=== PATIENT | male | born 1965 | race Caucasian/White ===

== ENCOUNTER 2020-03-15 18:02 | Emergency (ER) | payer OTHER ==
[~2020-03-15] VITALS: Ht 177.8 cm; Wt 91.3 kg
[2020-03-15 18:03] VITALS: BP 137/83
[2020-03-15] MEDS ORDERED: ZOCO10TA PO (18:16)
[2020-03-15] MEDS ORDERED: lisinopril (18:16)
[2020-03-15] MEDS ORDERED: RABIES VACCINE HUMAN 2.5 INTERNATIONAL UNITS/ML VIAL (90675) IM ONE (18:45)
[2020-03-15] MEDS ORDERED: RABIES IMMUNE GLOBULIN 1500 INTERNATIONAL UNIT/5ML VIAL (90375) IM ONE ×2 (18:45→19:00)
[2020-03-15] MEDS ORDERED: RABIES IMMUNE GLOBULIN 300 INTERNATIONAL UNITS/1ML VIAL (90375) IM ONE (19:00)
== END 2020-03-15 20:37 | disposition home or self-care (01) ==
LOC: M ED 18:02
DX: Z23 Encounter for immunization (principal); Z20.3 Contact with and (suspected) exposure to rabies; I10 Essential (primary) hypertension; E78.5 Hyperlipidemia, unspecified; Z88.0 Allergy status to penicillin

== ENCOUNTER 2020-03-18 07:09 | Emergency (ER) | payer OTHER ==
[~2020-03-18] VITALS: Ht 177.8 cm; Wt 91.1 kg
[~2020-03-18 07:09] MED LIST: ZOCO10TA PO; lisinopril
[2020-03-18] MEDS ORDERED: RABIES VACCINE HUMAN 2.5 INTERNATIONAL UNITS/ML VIAL (90675) IM ONE (07:30)
[2020-03-18 08:03] VITALS: BP 132/78
== END 2020-03-18 08:05 | disposition home or self-care (01) ==
LOC: M ED 07:09
DX: Z20.3 Contact with and (suspected) exposure to rabies (principal); Z23 Encounter for immunization; I10 Essential (primary) hypertension; E78.5 Hyperlipidemia, unspecified; Z79.899 Other long term (current) drug therapy; Z88.0 Allergy status to penicillin

== ENCOUNTER 2020-03-22 04:17 | Emergency (ER) | payer OTHER ==
[~2020-03-22] VITALS: Ht 177.8 cm; Wt 88.6 kg
[2020-03-22 04:17] VITALS: BP 147/83
[2020-03-22] MEDS ORDERED: RABIES VACCINE HUMAN 2.5 INTERNATIONAL UNITS/ML VIAL (90675) IM ONE (04:30)
== END 2020-03-22 04:43 | disposition home or self-care (01) ==
LOC: M ED 04:17
DX: Z20.3 Contact with and (suspected) exposure to rabies (principal); Z23 Encounter for immunization; I10 Essential (primary) hypertension; Z79.899 Other long term (current) drug therapy

== ENCOUNTER 2020-03-29 04:27 | Emergency (ER) | payer OTHER ==
[~2020-03-29] VITALS: Ht 177.8 cm; Wt 89.9 kg
[2020-03-29 04:27] VITALS: BP 138/91
[2020-03-29] MEDS ORDERED: RABIES VACCINE HUMAN 2.5 INTERNATIONAL UNITS/ML VIAL (90675) IM ONE (05:15)
== END 2020-03-29 05:37 | disposition home or self-care (01) ==
LOC: M ED 04:27
DX: Z20.3 Contact with and (suspected) exposure to rabies (principal); Z23 Encounter for immunization; I10 Essential (primary) hypertension; E78.5 Hyperlipidemia, unspecified; Z79.899 Other long term (current) drug therapy; Z88.0 Allergy status to penicillin

== ENCOUNTER 2020-08-31 16:13 | Emergency (ER) | payer OTHER ==
[~2020-08-31] VITALS: Ht 177.8 cm; Wt 93.6 kg
[2020-08-31 17:52] LABS: BASO % 0.5 % (0.0-1.0); EOS # 0.1 10^3/uL (0.0-0.5); EOS % 1.5 % (0.0-3.0); HEMATOCRIT 44.6 % (42.0-52.0); HEMOGLOBIN 15.5 g/dl (13.5-17.5); LYMPH # 1.4 10^3/uL (1.5-5.0); LYMPH % 35.1 % (24.0-44.0); MEAN CORPUSCULAR HEMOGLOBIN 34.1 pg (27.0-33.0); MEAN CORPUSCULAR HGB CONC 34.8 g/dl (32.0-36.5); MONO # 0.4 10^3/uL (0.0-0.8); MONO % 8.6 % (2.0-8.0); NEUTROPHILS # 2.2 10^3/uL (1.5-8.5); NEUTROPHILS % 54.1 % (36.0-66.0); PLATELET COUNT, AUTOMATED 214 10^3/uL (150-450); RED BLOOD COUNT 4.55 10^6/uL (4.30-6.10); WHITE BLOOD COUNT 4.1 10^3/uL (4.0-10.0)
[2020-08-31 18:11] LABS: ALBUMIN 4.1 GM/DL (3.2-5.2); ALT/SGPT 85 U/L (12-78); BILIRUBIN,DIRECT 0.2 MG/DL (0.0-0.2); BILIRUBIN,TOTAL 0.5 MG/DL (0.2-1.0); BLOOD UREA NITROGEN 20 MG/DL (7-18); CARBON DIOXIDE LEVEL 32 MEQ/L (21-32); CHLORIDE LEVEL 104 MEQ/L (98-107); CREATININE FOR GFR 1.08 MG/DL (0.70-1.30); GLOMERULAR FILTRATION RATE > 60.0 (>56); GLUCOSE, FASTING 132 MG/DL (70-100); LIPASE 123 U/L (73-393); POTASSIUM SERUM 4.1 MEQ/L (3.5-5.1); SODIUM LEVEL 139 MEQ/L (136-145); TOTAL PROTEIN 6.8 GM/DL (6.4-8.2)
--- NOTE | 2020-08-31 18:49 | REP ---
INDICATION: RUQ pain. COMPARISON: None. TECHNIQUE: Real-time sonographic evaluation of right upper quadrant performed. FINDINGS: The gallbladder demonstrates no evidence of intraluminal sludge or calculi, wall thickening or pericholecystic fluid. Gallbladder is somewhat contracted likely due to recent meal approximately 3 hours ago. There is no intrahepatic or extrahepatic biliary dilatation, common bile duct measures 4 mm in maximum diameter. The liver demonstrates homogeneous echotexture with no gross mass. Visualized pancreas is grossly unremarkable, not well seen due to overlying bowel gas. The right kidney demonstrates no hydronephrosis, with a normal size of 11.2 cm in length. There is a 6 mm cyst in the mid right kidney.No free fluid is seen. IMPRESSION: Essentially negative right upper quadrant ultrasound. Gallbladder is somewhat contracted likely due to recent meal approximately 3 hours ago. <Electronically signed by Lucio Acharya > 08/31/20 [id number]
[2020-08-31 18:51] VITALS: BP 148/77
== END 2020-08-31 18:52 | disposition home or self-care (01) ==
LOC: M ED 16:13
DX: R10.11 Right upper quadrant pain (principal); I10 Essential (primary) hypertension; E78.5 Hyperlipidemia, unspecified; Z79.899 Other long term (current) drug therapy; Z88.0 Allergy status to penicillin

== ENCOUNTER 2020-10-05 01:33 | Emergency (ER) | payer OTHER ==
[~2020-10-05] VITALS: Ht 177.8 cm; Wt 88.6 kg
[2020-10-05] MEDS ORDERED: OMEP10CASR PO (01:44)
[2020-10-05] MEDS ORDERED: ATOR1TAB21 PO (01:44)
[2020-10-05 03:11] LABS: BASO % 0.4 % (0.0-1.0); EOS % 0.7 % (0.0-3.0); HEMATOCRIT 45.2 % (42.0-52.0); HEMOGLOBIN 15.6 g/dl (13.5-17.5); LYMPH # 1.1 10^3/uL (1.5-5.0); LYMPH % 23.3 % (24.0-44.0); MEAN CORPUSCULAR HEMOGLOBIN 33.6 pg (27.0-33.0); MEAN CORPUSCULAR HGB CONC 34.5 g/dl (32.0-36.5); MEAN CORPUSCULAR VOLUME 97.4 fl (80.0-96.0); MONO # 0.5 10^3/uL (0.0-0.8); MONO % 10.4 % (2.0-8.0); NEUTROPHILS # 2.9 10^3/uL (1.5-8.5); NEUTROPHILS % 64.8 % (36.0-66.0); PLATELET COUNT, AUTOMATED 204 10^3/uL (150-450); RED BLOOD COUNT 4.64 10^6/uL (4.30-6.10); WHITE BLOOD COUNT 4.5 10^3/uL (4.0-10.0)
[2020-10-05 03:40] LABS: ALBUMIN 4.2 GM/DL (3.2-5.2); ALT/SGPT 62 U/L (12-78); BILIRUBIN,DIRECT 0.1 MG/DL (0.0-0.2); BILIRUBIN,TOTAL 0.4 MG/DL (0.2-1.0); BLOOD UREA NITROGEN 22 MG/DL (7-18); CALCIUM LEVEL 8.9 MG/DL (8.5-10.1); CARBON DIOXIDE LEVEL 25 MEQ/L (21-32); CHLORIDE LEVEL 107 MEQ/L (98-107); CREATININE FOR GFR 1.18 MG/DL (0.70-1.30); GLOMERULAR FILTRATION RATE > 60.0 (>56); GLUCOSE, FASTING 109 MG/DL (70-100); LIPASE 92 U/L (73-393); POTASSIUM SERUM 4.1 MEQ/L (3.5-5.1); SODIUM LEVEL 140 MEQ/L (136-145); TOTAL PROTEIN 6.7 GM/DL (6.4-8.2)
[2020-10-05] MEDS ORDERED: KETOROLAC 30 MG/ML 1ML VIAL IV ONE (03:45)
[2020-10-05] MEDS: GASTROGRAFIN SOLUTION 30ML PO SCH ×2 (04:19→04:50)
[2020-10-05] MEDS ORDERED: ISOVUE-370 76% 100ML VIAL As Ordered ONE (05:29)
--- NOTE | 2020-10-05 06:38 | REPVR ---
PROCEDURE INFORMATION: Exam: CT Abdomen And Pelvis With Contrast Exam date and time: 10/05/2020 3:51 AM Age: 55 years old Clinical indication: Abdominal pain; Flank; Left; Additional info: Llq pain TECHNIQUE: Imaging protocol: Computed tomography of the abdomen and pelvis with contrast. Radiation optimization: All CT scans at this facility use at least one of these dose optimization techniques: automated exposure control; mA and/or kV adjustment per patient size (includes targeted exams where dose is matched to clinical indication); or iterative reconstruction. Contrast material: ISO; Contrast volume: 100 ml; Contrast route: INTRAVENOUS (IV); Other contrast: Oral, ggraphin, 600; COMPARISON: GALLBLADDER US 08/31/2020 6:24 PM FINDINGS: Lungs: There is basilar atelectasis. Liver: Normal. No mass. Gallbladder and bile ducts: No calcified stones. No ductal dilation. Pancreas: Normal. No ductal dilation. Spleen: Normal. No splenomegaly. Adrenal glands: Normal. No mass. Kidneys and ureters: There is mild left hydronephrosis and hydroureter to a 4 mm distal left ureteral calculus, 1 cm from the left UVJ seen best on image 128 of series 201. This is not clearly demonstrated on the brand planner radiograph. There is a 4 mm nonobstructing calculus in the upper pole the right kidney and a punctate nonobstructing calculus in the lower pole left kidney. There is a 6 mm hypodensity in the lateral cortex of the right kidney which is too small to characterize but statistically represents a cyst. Stomach and bowel: There is diverticulosis of the left colon. Appendix: No evidence of appendicitis. Intraperitoneal space: No free air. No significant fluid collection. Vasculature: No abdominal aortic aneurysm. Lymph nodes: No enlarged lymph nodes. Urinary bladder: Unremarkable as visualized. Reproductive: Unremarkable as visualized. Bones/joints: There are postoperative changes from anterior and posterior spinal fusion L4-S1. Soft tissues: Unremarkable. IMPRESSION: 1. There is mild obstruction of the left kidney from a 4 mm distal left ureteral calculus, 1 cm from the left UVJ. 2. Nonobstructing renal calculi. 3 Diverticulosis. Electronically signed by: Marcus Fitch On 10/05/2020 06:38:26 AM
[2020-10-05] MEDS ORDERED: TAMSULOSIN 0.4 MG CAP PO ONE (06:45)
[2020-10-05] MEDS ORDERED: HYDR-3713 PO (06:56)
[2020-10-05] MEDS ORDERED: ONDA4TAB6 PO (06:56)
[2020-10-05] MEDS ORDERED: FLOM0.4C39 PO (06:56)
[2020-10-05 07:15] VITALS: BP 164/96
== END 2020-10-05 07:28 | disposition home or self-care (01) ==
LOC: M ED 01:33
DX: N20.1 Calculus of ureter (principal); I10 Essential (primary) hypertension; E78.5 Hyperlipidemia, unspecified; Z79.899 Other long term (current) drug therapy
CPT/HCPCS: 74177; 80048; 80076; 81001; 83690; 85025; 96374; 99285; J1885; Q9963; Q9967

== ENCOUNTER → 2020-10-18 | Outpatient (CLI) | payer OTHER ==
[~2020-10-18] MED LIST changes: +ATOR1TAB21 PO; +FLOM0.4C39 PO; +HYDR-3713 PO; +OMEP10CASR PO; +ONDA4TAB6 PO
--- NOTE | 2020-10-18 15:26 | REPPI ---
INDICATION: N20.1 LEFT URETERAL CALCULUS COMPARISON: CT dated 10/05/2020 TECHNIQUE: Supine views of the abdomen and pelvis. FINDINGS: The small intrarenal calculi identified on CT are not visible by current x-ray. A 4 mm calcification is identified within the left hemipelvis which may represent the known ureteral stone or known phlebolith. Evaluation is limited and correlation with urinalysis and physical examination may be warranted. Bowel gas pattern is nonspecific. Evidence for prior lumbar laminectomy and fixation. IMPRESSION: 4 mm calcification in the left hemipelvis likely represents known phlebolith as a 2nd calcification consistent with the patient's prior distal left ureteral stone is not identifiable. Correlation with urinalysis and physical examination may be warranted. <Electronically signed by Isaac Finch > 10/18/20 1521
== END ==
LOC: M PLAIMG 14:44
PROVIDERS: ATTEND Urology
DX: N20.1 Calculus of ureter (principal)
CPT/HCPCS: 74018; G0463

== ENCOUNTER → 2020-10-24 | Outpatient (REF) | payer OTHER | LOC: M SMT 13:01 | PROVIDERS: ATTEND Urology | DX: N20.1 Calculus of ureter (principal) ==

== ENCOUNTER 2020-12-14 08:38 | Day surgery (SDC) | payer OTHER ==
[~2020-12-14] VITALS: Ht 177.8 cm; Wt 93.2 kg
[~2020-12-14 08:38] MED LIST changes: +LISI20TA33 PO; +NS 1,000 ML IV SCH
[2020-12-14] MEDS ORDERED: propofoL 200 MG/20 ML VIAL As Ordered ONE (08:49)
[2020-12-14] MEDS ORDERED: LIDOCAINE 2% 100MG/5ML SDV (FOR ANES.) As Ordered ONE (08:49)
[2020-12-14] MEDS ORDERED: fentaNYL 100 MCG/2 ML INJECTION (J3010) As Ordered ONE (10:12)
--- NOTE | 2020-12-14 10:25 | ROOR ---
Patient Name: Landen Martinez Procedure Date: 12/14/2020 10:05 AM Date of : 1965 Age: 55 Room: [facility] Gender: Male Note Status: Finalized Procedure: Upper Endoscopy + Biopsies Indications: Epigastric abdominal pain, Heartburn, Exclusion of Madsen's esophagus Providers: Luca Tello MD Referring MD: Rakesh Santana Do Requesting Provider: Medicines: Monitored Anesthesia Care Complications: No immediate complications. Procedure: Pre-Anesthesia Assessment: - The heart rate, respiratory rate, oxygen saturations, blood pressure, adequacy of pulmonary ventilation, and response to care were monitored throughout the procedure. The Endoscope was introduced through the mouth, and advanced to the second part of duodenum. The upper GI endoscopy was accomplished without difficulty. The patient tolerated the procedure well. Findings: The Z-line was variable and was found 40 cm from the incisors. Multiple biopsies were obtained with cold forceps for evaluation to rule out Madsen's Esophagus randomly at the gastroesophageal junction. No other significant abnormalities were identified in a careful examination of the stomach. Biopsies were taken with a cold forceps in the gastric antrum for Helicobacter pylori testing. The exam of the duodenum was otherwise normal. Impression: - Z-line variable, 40 cm from the incisors. - Multiple biopsies were obtained at the gastroesophageal junction. - Biopsies were taken with a cold forceps for Helicobacter pylori testing. - The examination was otherwise normal. Recommendation: - Patient has a contact number available for emergencies. The signs and symptoms of potential delayed complications were discussed with the patient. Return to normal activities tomorrow. Written discharge instructions were provided to the patient. - High fiber diet. - Discharge patient to home. - Follow an antireflux regimen. - Continue present medications. - Await pathology results. - Telephone GI clinic for pathology results in 1 week. - Repeat upper endoscopy for surveillance based on pathology results. - The findings and recommendations were discussed with the patient's family. Procedure Code(s): --- Professional --- 52149, Esophagogastroduodenoscopy, flexible, transoral; with biopsy, single or multiple Diagnosis Code(s): --- Professional --- K22.8, Other specified diseases of esophagus R10.13, Epigastric pain R12, Heartburn CPT copyright 2019 [employer]. All rights reserved. The codes documented in this report are preliminary and upon pin ticket machine operator review may be revised to meet current compliance requirements. Luca Tello MD Luca Tello MD 12/14/2020 10:24:49 AM Electronically signed by Luca Tello MD Number of Addenda: 0 Note Initiated On: 12/14/2020 10:05 AM Estimated Blood Loss: Estimated blood loss: none.
[2020-12-14 10:42] VITALS: BP 122/78
== END 2020-12-14 10:48 | disposition home or self-care (01) ==
LOC: M OPP 08:38
PROVIDERS: ATTEND Internal Medicine Gastroenterology
DX: K22.8 Other specified diseases of esophagus (principal); K21.9 Gastro-esophageal reflux disease without esophagitis; R12 Heartburn; R10.84 Generalized abdominal pain; Z79.899 Other long term (current) drug therapy; Z88.0 Allergy status to penicillin; Z87.891 Personal history of nicotine dependence; Z87.442 Personal history of urinary calculi
CPT/HCPCS: 43239; 88305; J3010

== ENCOUNTER → 2022-02-25 | Outpatient (CLI) | payer OTHER ==
[~2022-02-25] MED LIST changes: -NS 1,000 ML IV SCH; +SIMV-252 PO; -ZOCO10TA PO
[2022-02-25 11:01] LABS: APPEARANCE, URINE MANUAL CLEAR (CLEAR); COLOR, URINE MANUAL YELLOW (YELLOW); PH,URINE MAN 5.5 UNITS (5.0 - 7.0); SPECIFIC GRAVITY,URINE MANUAL 1.015 (1.002-1.035)
[2022-02-25 11:02] LABS: BILIRUBIN, URINE MANUAL NEGATIVE (NEGATIVE); GLUCOSE, URINE (UA) MANUAL NEGATIVE (NEGATIVE); KETONE, URINE MANUAL NEGATIVE (NEGATIVE); NITRITE, URINE MANUAL NEGATIVE (NEGATIVE); PROTEIN, URINE MANUAL NEGATIVE (NEGATIVE); UROBILINOGEN, URINE MANUAL NORMAL (NORMAL)
[2022-02-25 11:04] LABS: BLOOD URINE MANUAL TRACE (NEGATIVE); LEUKOCYTE ESTERASE, URINE MAN TRACE (NEGATIVE)
[2022-02-25 11:10] LABS: BACTERIA, URINE NONE SEEN; RBC, URINE 0-1 /hpf (0-3); SQUAMOUS EPITHELIAL CELL URINE NONE SEEN /hpf (SMALL AMT); WBC, URINE 0-1 /hpf (0-3)
[2022-02-25 11:11] LABS: HYALINE CAST, URINE NONE SEEN /lpf (0-1)
== END ==
LOC: M PLAIMG 09:54
PROVIDERS: ATTEND Urology
DX: N20.0 Calculus of kidney (principal)
CPT/HCPCS: 74018; 81000; G0463

== ENCOUNTER 2022-05-08 09:18 | Day surgery (SDC) | payer OTHER ==
[~2022-05-08] VITALS: Ht 172.7 cm; Wt 94.3 kg
[2022-05-08] MEDS ORDERED: LIDOCAINE 1% SDV 5ML VIAL SC PRN (10:10)
[2022-05-08] MEDS ORDERED: LR 1,000 ML IV SCH (10:10)
[2022-05-08] MEDS ORDERED: ceFAZolin SOD 2 GM in IV 1 EA IV ONE (10:15)
[2022-05-08] MEDS ORDERED: MIDAZOLAM INJ 2MG/2ML VIAL (J2250 PER 1MG) As Ordered ONE (10:26)
[2022-05-08] MEDS ORDERED: fentaNYL 100 MCG/2 ML INJECTION As Ordered ONE (10:27)
[2022-05-08] MEDS ORDERED: LIDOCAINE 2% 100MG/5ML SDV (FOR ANES.) As Ordered ONE (10:27)
[2022-05-08] MEDS ORDERED: propofoL 200 MG/20 ML VIAL As Ordered ONE (10:27)
[2022-05-08] MEDS ORDERED: HYDR-3713 PO (11:31)
[2022-05-08] MEDS ORDERED: ePHEDrine SULFATE 25 MG/5 ML(5MG/ML) SYRINGE As Ordered ONE (11:37)
[2022-05-08 12:45] VITALS: BP 143/84
== END 2022-05-08 12:45 | disposition home or self-care (01) ==
LOC: M SDC 09:18
PROVIDERS: ATTEND Urology
DX: N20.0 Calculus of kidney (principal); E78.5 Hyperlipidemia, unspecified; K21.9 Gastro-esophageal reflux disease without esophagitis; I10 Essential (primary) hypertension; Z87.442 Personal history of urinary calculi; Z88.0 Allergy status to penicillin; Z79.899 Other long term (current) drug therapy
CPT/HCPCS: 50590; 74018; J2250; J3010

== ENCOUNTER → 2022-05-30 | Outpatient (REF) | payer OTHER ==
[2022-06-04 14:08] LABS: CA Oxalate Dihy 20 % (.); Ca Ox Monohydrate 80 % (.); Size 3x3 mm (.)
== END ==
LOC: M SMT 16:43
PROVIDERS: ATTEND Urology
DX: N20.0 Calculus of kidney (principal)

== ENCOUNTER → 2022-06-12 | Outpatient (CLI) | payer OTHER | LOC: M PLARAD 13:39 | PROVIDERS: ATTEND Family Medicine | DX: M54.50 Low back pain, unspecified (principal); M43.26 Fusion of spine, lumbar region; M50.21 Other cervical disc displacement, high cervical region; M50.223 Other cervical disc displacement at C6-C7 level ==

== ENCOUNTER 2022-12-19 00:12 | Emergency (ER) | payer OTHER ==
[~2022-12-19] VITALS: Ht 177.8 cm; Wt 97.7 kg
[2022-12-19 00:13] VITALS: BP 136/84; TEMP 99.4; O2SAT 97
[2022-12-19] MEDS ORDERED: NAPR-885 (00:18)
[2022-12-19] MEDS ORDERED: MIRA3350 PO (00:20)
[2022-12-19 02:11] LABS: BASO % 0.4 % (0.0-1.0); EOS % 0.2 % (0.0-3.0); HEMATOCRIT 45.5 % (42.0-52.0); HEMOGLOBIN 16.1 g/dl (13.5-17.5); LYMPH # 1.5 10^3/uL (1.5-5.0); LYMPH % 13.5 % (24.0-44.0); MEAN CORPUSCULAR HGB CONC 35.4 g/dl (32.0-36.5); MONO # 1.1 10^3/uL (0.0-0.8); MONO % 9.6 % (2.0-8.0); NEUTROPHILS # 8.7 10^3/uL (1.5-8.5); NEUTROPHILS % 75.9 % (36.0-66.0); PLATELET COUNT, AUTOMATED 206 10^3/uL (150-450); RED BLOOD COUNT 4.74 10^6/uL (4.30-6.10); WHITE BLOOD COUNT 11.4 10^3/uL (4.0-10.0)
[2022-12-19 02:37] LABS: LIPASE 29 U/L (12-53)
[2022-12-19 02:40] LABS: ALBUMIN 4.4 G/DL (3.2-5.2); ALKALINE PHOSPHATASE 86 U/L (46-116); ALT/SGPT 50 U/L (7.0-40); AST/SGOT 24 U/L (<34); BILIRUBIN,DIRECT 0.5 MG/DL (<0.4); BILIRUBIN,TOTAL 1.6 MG/DL (0.3-1.2); BLOOD UREA NITROGEN 15 MG/DL (9-23); CALCIUM LEVEL 9.7 MG/DL (8.5-10.1); CARBON DIOXIDE LEVEL 26 MMOL/L (20-31); CHLORIDE LEVEL 99 MMOL/L (98-107); CREATININE FOR GFR 0.89 MG/DL (0.70-1.30); GLOMERULAR FILTRATION RATE > 60.0 (>56); GLUCOSE, FASTING 108 MG/DL (60-100); POTASSIUM SERUM 4.4 MMOL/L (3.5-5.1); SODIUM LEVEL 134 MMOL/L (136-145); TOTAL PROTEIN 7.4 G/DL (5.7-8.2)
[2022-12-19] MEDS ORDERED: ISOVUE-370 76% 100ML VIAL As Ordered ONE (02:41)
[2022-12-19] MEDS ORDERED: KETOROLAC 30 MG/ML 1ML VIAL IV ONE (03:00)
[2022-12-19] MEDS ORDERED: PERC5TAB12 PO (04:03)
[2022-12-19] MEDS ORDERED: CIPR-249 PO (04:03)
[2022-12-19] MEDS ORDERED: metroNIDAZOLE (FLAGYL) 500MG TABLET PO ONE (04:05)
[2022-12-19] MEDS ORDERED: PERCOCET 5MG/325MG TAB PO ONE (04:05)
[2022-12-19] MEDS ORDERED: METR-265 PO (04:05)
[2022-12-19] MEDS ORDERED: CIPROFLOXACIN 500MG TABLET PO ONE (04:05)
== END 2022-12-19 04:42 | disposition home or self-care (01) ==
LOC: M ED 00:12
DX: K57.92 Diverticulitis of intestine, part unspecified, without perforation or abscess without bleeding (principal); I12.9 Hypertensive chronic kidney disease with stage 1 through stage 4 chronic kidney disease, or unspecified chronic kidney disease; N18.9 Chronic kidney disease, unspecified; Z88.0 Allergy status to penicillin; Z79.899 Other long term (current) drug therapy
CPT/HCPCS: 74177; 80048; 80076; 83690; 85025; 96374; 99282; J1885; Q9967

== ENCOUNTER → 2024-07-08 | Outpatient (CLI) | payer OTHER ==
[~2024-07-08] MED LIST changes: +CIPR-249 PO; +METR-265 PO; +MIRA3350 PO; +NAPR-885; +ONDA-282 PO; -ONDA4TAB6 PO; +PERC5TAB12 PO
== END ==
LOC: M PLALAB 10:12
PROVIDERS: ATTEND Urology
DX: N20.0 Calculus of kidney (principal)